=== PATIENT | male | born 1945 | race Caucasian/White ===

== ENCOUNTER 2018-03-12 07:07 | Day surgery (SDC) | payer OTHER ==
[2018-03-12] MEDS: BETADINE OPTH PREP OP PRN ×2 (09:15→09:37)
[2018-03-12] MEDS: TETRACAINE 0.5% UNIT-DOSE OP PRN ×2 (09:15→09:36)
[2018-03-12] MEDS: CYCLOGYL 2% OPTH OP PRN ×3 (09:16→09:26)
[2018-03-12] MEDS ORDERED: LIDOCAINE 1%/PHENYLEPHRINE 1.5% BSS (SURGERY) INTRAOCULA ONE (09:21)
[2018-03-12] MEDS ORDERED: DEX-MOXI-KETOR OPTH INJ 1/0.5/0.4 MG/ML IO ONE (09:21)
[2018-03-12] MEDS ORDERED: BRIMONIDINE TARTRATE 0.2% OPTH SOL OP PRN (09:21)
[2018-03-12] MEDS ORDERED: ZOFRAN 4 MG/2 ML IVP ONE (09:21)
[2018-03-12] MEDS ORDERED: LIDOCAINE 1% 20 ML MDV ID STA (09:21)
[2018-03-12] MEDS ORDERED: BSS WITH EPINEPHRINE OP ONE (09:21)
[2018-03-12] MEDS ORDERED: SUBLIMAZE ONE (09:45)
[2018-03-12] MEDS ORDERED: ZOFRAN 4 MG/2 ML ONE (09:45)
[2018-03-12] MEDS ORDERED: VERSED ONE (09:45)
[2018-03-12 14:46] VITALS: TEMP 98.7
[2018-03-14 11:25] VITALS: BP 124/67
== END 2018-03-12 10:30 | disposition home or self-care (01) ==
LOC: SURG 07:07
PROVIDERS: ATTEND Ophthalmology
DX: H25.811 Combined forms of age-related cataract, right eye (principal)